=== PATIENT | male | born 1965 | race Caucasian/White ===

== ENCOUNTER 2018-05-07 10:14 | Outpatient (CLI) | payer OTHER ==
[2015-08-27 00:56] VITALS: O2SAT 97
== END 2018-05-07 10:15 | disposition home or self-care (01) | DRG 556 ==
LOC: CONVCARE 10:14
PROVIDERS: ATTEND Orthopaedic Surgery
DX: M25.562 Pain in left knee (principal); M94.262 Chondromalacia, left knee; M94.211 Chondromalacia, right shoulder
CPT/HCPCS: 73560

== ENCOUNTER 2018-06-27 09:28 | Outpatient (CLI) | payer BC | END 2018-06-27 09:29 | disposition home or self-care (01) | LOC: CONVCARE 09:29 ==